=== PATIENT | male | born 1960 | race Caucasian/White ===

== ENCOUNTER 2020-07-16 08:16 | Emergency (ER) | payer OTHER ==
[~2020-07-16] VITALS: Ht 185.4 cm; Wt 90.7 kg
[~2020-07-16 08:16] MED LIST: ADVIL200 M3 PO; DOXYCYCLINE 10100 MG PO; FISH OIL + VIT1 EACH PO; KEFLEX500 MG PO; MULTI VITAMIN1 EACH PO; PERCOCET 5-3251 EACH PO; TURMERIC500 MG PO
[2020-07-16 08:17] VITALS: BP 131/82
== END 2020-07-16 08:49 | disposition home or self-care (01) ==
LOC: ER 08:16
DX: S61.522A Laceration with foreign body of left wrist, initial encounter (principal); S60.415A Abrasion of left ring finger, initial encounter; Z79.899 Other long term (current) drug therapy; Z88.0 Allergy status to penicillin; Z91.040 Latex allergy status; W50.3XXA Accidental bite by another person, initial encounter; Y93.89 Activity, other specified; Y92.89 Other specified places as the place of occurrence of the external cause; Y99.8 Other external cause status